=== PATIENT | male | born 1995 | race Caucasian/White ===

== ENCOUNTER 2017-01-26 11:00 | Outpatient (CLI) | payer OTHER ==
[~2017-01-26] VITALS: Ht 180.3 cm; Wt 90.7 kg
[2017-01-26] MEDS ORDERED: CETI10TA20 PO (12:50)
[2017-01-27] MEDS ORDERED: HYDR-3812 PO (10:14)
== END 2017-01-26 12:52 ==
LOC: PREOP 11:00
PROVIDERS: ATTEND Surgery
DX: Z01.818 Encounter for other preprocedural examination (principal); K40.90 Unilateral inguinal hernia, without obstruction or gangrene, not specified as recurrent

== ENCOUNTER 2017-01-27 06:16 | Day surgery (SDC) | payer OTHER ==
[~2017-01-27] VITALS: Ht 180.3 cm; Wt 93.0 kg
[~2017-01-27 06:16] MED LIST: CETI10TA20 PO
[2017-01-27] MEDS ORDERED: proPOfol 200 MG/20 ML (DIPRIVAN) VIAL IV ONE (06:28)
[2017-01-27] MEDS ORDERED: ONDANSETRON 4 MG/2 ML (SDV) Z0FRAN ONE (06:28)
[2017-01-27] MEDS ORDERED: fentaNYL INJECTION 100 MCG/2 ML AMP ONE ×2 (06:28→08:21)
[2017-01-27] MEDS ORDERED: MIDAZOLAM 2 MG/2 ML (VERSED) VIAL ONE (06:29)
[2017-01-27] MEDS ORDERED: LIDOCAINE PF 2% 5 ML (XYLOCAINE) VIAL ONE (06:29)
[2017-01-27 07:05] LABS: MEAN PLATELET VOLUME 9.1 FL (7.4-10.4); RED BLOOD COUNT 5.07 10^6/uL (4.35-5.85); RED CELL DISTRIBUTION WIDTH 12.6 % (10.0-14.5); WHITE BLOOD COUNT 6.7 10^3/uL (4.3-11.0)
[2017-01-27] MEDS ORDERED: BUP/EPI 0.25% 1:200,000 (MARCAINE) 10 ML VIAL IJ ONE (07:14)
[2017-01-27] MEDS ORDERED: ceFAZolin 1 GM/NS 50 ML IVPB IV ONE ×2 (07:15)
[2017-01-27] MEDS: LACTATED RINGERS 1,000 ML IV PRN ×3 (07:20→09:19)
[2017-01-27 07:37] VITALS: BP 123/73
--- NOTE | 2017-01-27 07:55 | Progress Note-Pre Operative ---
Pre-Operative Progress Note H&P Reviewed The H&P was reviewed, patient examined and no changes noted. Date Seen by Provider: Jan 27, 2017 Time Seen by Provider: 07:55 Date H&P Reviewed: Jan 27, 2017 Time H&P Reviewed: 07:55 Pre-Operative Diagnosis: Right Inguinal hernia GARIMA CAMARA MD Jan 27, 2017 7:55 am
[2017-01-27] MEDS ORDERED: ROCURONIUM 50 MG/5 ML (ZEMURON) VIAL IV ONE ×2 (08:05→09:46)
[2017-01-27] MEDS ORDERED: SEVOFLURANE (ULTANE) 15 ML INHAL SOLN ONE (08:06)
[2017-01-27] MEDS ORDERED: LACTATED RINGERS 1,000 ML IV ONE (10:01)
[2017-01-27] MEDS ORDERED: GLYCOPYRROLATE 0.2 MG/ML (ROBINUL) 2 ML VIAL ONE (10:09)
[2017-01-27] MEDS ORDERED: NEOSTIGMINE (BLOXIVERZ ) 1 MG/1ML 10 ML VIAL ONE (10:09)
--- NOTE | 2017-01-27 10:13 | Progress Note-Post Operative ---
Post-Operative Progess Note Surgeon (s)/[employer] (s) Surgeon GARIMA CAMARA MD [employer]: NOT APPLICABLE Pre-Operative Diagnosis Right Inguinal hernia Post-Operative Diagnosis SAME Procedure & Operative Findings Date of Procedure 01/27/17 Procedure Performed/Findings ROBOTIC ASSISTED REPAIR WITH MESH Anesthesia Type gEN. Estimated Blood Loss Estimated blood loss (mL): mminimal Specimens/Packing Specimens Removed none GARIMA CAMARA MD Jan 27, 2017 10:13 am
[2017-01-27] MEDS ORDERED: HYDR-3812 PO (10:14)
--- NOTE | 2017-01-27 10:15 | Discharge Inst-Simple/Standard ---
Discharge Inst-Standard Discharge Medications New, Converted or Re-Newed RX: RX on Chart Patient Instructions/Follow Up Plan of Care/Instructions/FU: dressings off in 48 hours. Follow-up in 4 weeks Activity as Tolerated: No Goal: no lifting over 10 pounds Discharge Diet: No Restrictions GARIMA CAMARA MD Jan 27, 2017 10:15 am
[2017-01-27] MEDS ORDERED: morphine INJ 10 MG/ML 1ML (SYR OR VIAL) ONE (10:18)
[2017-01-27] MEDS ORDERED: MEPERIDINE (DEMEROL) INJ 50 MG/ML ONE (10:18)
[2017-01-27] MEDS: MEPERIDINE (DEMEROL) INJ 50 MG/ML IVP PRN ×2 (10:20→10:30)
[2017-01-27] MEDS ORDERED: ONDANSETRON 4 MG/2 ML (SDV) Z0FRAN IVP PRN (10:30)
[2017-01-27] MEDS: morphine INJ 10 MG/ML 1ML (SYR OR VIAL) IVP PRN ×2 (10:48→10:58)
--- NOTE | 2017-01-27 11:03 | OPERATIVE REPORT ---
DATE OF SERVICE: 01/27/2017 PREOPERATIVE DIAGNOSIS: Right inguinal hernia. POSTOPERATIVE DIAGNOSIS: Right inguinal hernia. OPERATION: Robotic-assisted repair of right inguinal hernia with mesh. SURGEON: Garima Camara MD. ANESTHESIA: General anesthesia. BLOOD LOSS: Minimal. FLUIDS: 1200 mL of crystalloid. TYPE OF WOUND: Type 1 (clean wound). INDICATION FOR PROCEDURE: This young man presented with a large inguino-scrotal hernia. He was offered minimally invasive repair with robotic assistance and mesh reinforcement. Informed consent was obtained after reviewing the operative details and the complications of hematoma, infection of the mesh and recurrence of the hernia. DESCRIPTION OF PROCEDURE: He was placed supine on the operating table and general anesthesia induced using an endotracheal tube. A gram of Ancef was administered intravenously as prophylaxis against wound infection. Sequential compression devices were placed around his legs to minimize the risk of venous thrombosis. His abdomen was prepared and draped in the usual sterile manner. Pneumoperitoneum was established using a Veress needle introduced over the supraumbilical region. Intraabdominal pressure was maintained at 15 mmHg using carbon dioxide insufflation. A 12 mm trocar was placed and anatomy visualized using the high definition, 3-dimensional laparoscope associated with da [facility] system. Under direct view, I placed an 8 mm cannula over each site of the abdomen. The patient was then turned into a steep Trendelenburg position to facilitate displacing loops of bowel out of the pelvis. Laparoscopic survey confirmed omentum trapped within the hernia sac. It was taken down by sharp dissection revealing a large indirect defect. Peritoneum was incised laterally extending medially, entering the preperitoneal space. The inferior epigastric vessel was carefully protected. Jb's ligament was delineated followed by separation of a large indirect sac. 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 It was therefore transected at the deep inguinal ring. The internal ring was gently obliterated using a 2-0 V-Loc suture without constricting the cord structures. The preperitoneal space was then reinforced using a polypropylene mesh measuring 10 x 16 cm, pre-made to fit into the space . It was secured to Jb's ligament and the lateral abdominal muscles using a 2-0 vicryl suture. The mesh appeared to lay satisfactorily. Peritoneum was reconstituted using 2-0 V-Loc sutures in a continuous fashion. He tolerated the procedure well, was extubated in the operating room and taken to the recovery room in a stable condition. A Duran catheter was placed during surgery to decompress the bladder; it was removed at the end of the operation. Job ID: [id number] DocumentID: [id number] Dictated Date: 01/27/2017 10:13:05 [employer] Date: 01/27/2017 11:02:41 Dictated By: GARIMA CAMARA MD MTDD
[2017-01-27 11:15] VITALS: BP 105/62
[2017-01-27 11:45] VITALS: BP 105/60
[2017-01-27] MEDS ORDERED: HYDROcodone/APAP 5 MG/325 MG (LORTAB) TAB PO ONE (12:00)
[2017-01-27 12:15] VITALS: BP 102/63
== END 2017-01-27 12:44 | disposition home or self-care (01) ==
LOC: SDC 06:16
PROVIDERS: ATTEND Surgery
DX: K40.90 Unilateral inguinal hernia, without obstruction or gangrene, not specified as recurrent (principal)
CPT/HCPCS: 36415; 85027; 87081